=== PATIENT | female | born 1980 | race African-American/Black ===

== ENCOUNTER 2020-08-09 15:00 | Outpatient (RCR) | payer BC ==
[2020-07-21 16:27] VITALS: BP 123/82; PULSE 71; TEMP 98.2
[2020-07-28 15:08] VITALS: BP 120/55; PULSE 70; TEMP 98.2
[2020-08-04 16:36] VITALS: BP 140/72; PULSE 68; TEMP 98.7
[~2020-08-09] VITALS: Ht 149.9 cm; Wt 47.7 kg
[~2020-08-09 15:00] MED LIST: MIDOL CAPLET1 EACH PO; VOLTAREN 50MG T50 MG PO
[2020-08-09 15:30] VITALS: BP 114/76; PULSE 80; TEMP 98.9
== END 2020-08-09 16:04 | disposition home or self-care (01) ==
LOC: EUO
DX: E61.1 Iron deficiency (principal)
CPT/HCPCS: J1756

== ENCOUNTER → 2022-02-22 | Outpatient (CLI) | payer BC | LOC: MHCPAIN 13:36 | DX: M50.30 Other cervical disc degeneration, unspecified cervical region (principal); M54.16 Radiculopathy, lumbar region; M54.2 Cervicalgia; R51.9 Headache, unspecified; R20.0 Anesthesia of skin; G83.11 Monoplegia of lower limb affecting right dominant side; G83.21 Monoplegia of upper limb affecting right dominant side | CPT/HCPCS: G0463 ==

== ENCOUNTER → 2022-03-18 | Outpatient (CLI) | payer BC ==
[2022-03-18 09:10] LABS: C-REACTIVE PROTEIN 0.04 mg/dL (0.00-0.50)
== END ==
LOC: COL.LAB 07:59
PROVIDERS: Physical Medicine & Rehabilitation Sports Medicine
DX: M54.16 Radiculopathy, lumbar region (principal); M50.30 Other cervical disc degeneration, unspecified cervical region; R51.9 Headache, unspecified; G83.21 Monoplegia of upper limb affecting right dominant side; G83.11 Monoplegia of lower limb affecting right dominant side

== ENCOUNTER 2023-05-29 12:28 | Emergency (ER) | payer BC ==
[~2023-05-29] VITALS: Ht 149.9 cm; Wt 50.0 kg
[2023-05-29 12:32] VITALS: BP 139/80; TEMP 98.5
[2023-05-29] MEDS ORDERED: MEDROL 4MG DOSPA4 MG PO (13:12)
[2023-05-29] MEDS ORDERED: Promethazine 25 MG/ML 1 ML VIAL IM ONE (13:15)
[2023-05-29] MEDS ORDERED: HYDROmorphone 0.5 MG/0.5 ML SYRINGE IM ONE (13:15)
[2023-05-29 13:55] VITALS: PULSE 92
[2023-05-30] MEDS ORDERED: NORCO 325 MG-51 TAB PO (21:05)
[2023-05-30] MEDS ORDERED: ROBAXIN 50500 MG/TAB PO (21:06)
[2023-05-30] MEDS ORDERED: NEURONTIN300 MG/CAP PO (21:06)
[2023-05-30] MEDS ORDERED: CYMBALTA 60MG60 MG PO (21:07)
[2023-05-30] MEDS ORDERED: AMITRIPTYLINE H25 M1 (21:08)
== END 2023-05-29 13:55 | disposition home or self-care (01) ==
LOC: COL.ER 12:28
DX: M54.12 Radiculopathy, cervical region (principal)
CPT/HCPCS: J0780; J1170

== ENCOUNTER 2023-05-30 18:07 | Observation (INO) | payer BC ==
[~2023-05-30] VITALS: Ht 149.9 cm; Wt 54.0 kg
[~2023-05-30 18:07] MED LIST changes: +MEDROL 4MG DOSPA4 MG PO
[2023-05-30] MEDS ORDERED: NS 74 ML IV SCH (18:16)
[2023-05-30] MEDS ORDERED: Iohexol 300 - 100 ML VIAL IV ONE (18:16)
[2023-05-30 18:27] LABS: BASO % 0.5 % (0.0-2.0); EOS # 0.1 K/mm3 (0.0-0.7); EOS % 2.5 % (0.0-4.0); GRAN # 1.8 K/mm3 (1.4-6.5); HEMOGLOBIN 14.4 g/dl (12.5-16.0); LYMPH # 1.8 K/mm3 (1.2-3.4); LYMPH % 44.9 % (20.0-51.0); MEAN CELL VOLUME 90 fl (80.0-100.0); MEAN CORPUSCULAR HEMOGLOBIN 30 pg (27-31); MEAN CORPUSCULAR HGB CONC 34 g/dl (33.0-37.0); MEAN PLATELET VOLUME 10.1 fl (7.4-10.4); MONO # 0.3 K/mm3 (0.1-0.6); MONO % 7.9 % (1.7-9.3); PLATELET COUNT 287 K/mm3 (130-400); RED BLOOD COUNT 4.79 M/mm3 (4.10-5.30); REDCELL DISTRIBUTION WIDTH-CV 12.5 % (11.5-14.5)
[2023-05-30 18:49] LABS: ALANINE AMINOTRANSFERASE 23 U/L (0-55); ALBUMIN 4.5 gm/dL (3.5-5.0); ALKALINE PHOSPHATASE 46 U/L (40-150); ANION GAP 12 mmol/L (7-16); AST,SGOT 20 U/L (5-34); BILIRUBIN,TOTAL 0.6 mg/dL (0.2-1.2); BLOOD UREA NITROGEN 12 mg/dL (7-19); CARBON DIOXIDE 23 mmol/L (22-29); CHLORIDE 106 mmol/L (98-107); CREATININE, serum 0.81 mg/dL (0.57-1.11); GLUCOSE 127 mg/dL (70-99); POTASSIUM 3.8 mmol/L (3.5-4.5); SODIUM 141 mmol/L (136-145); TOTAL PROTEIN 8.1 gm/dL (6.2-8.1)
[2023-05-30 18:56] LABS: TROPONIN-I < 0.010 ng/mL (0.00-0.033)
[2023-05-30] MEDS ORDERED: diphenhydrAMINE 50 MG/ML 1 ML VIAL IV ONE (19:00)
[2023-05-30 19:21] LABS: COLLECTION METHOD CLEAN CATCH; URINE APPEARANCE Clear (CLEAR/HAZY); URINE BLOOD Negative (NEGATIVE); URINE COLOR Yellow (YELLOW); URINE GLUCOSE Negative (NEGATIVE); URINE KETONE Negative (NEGATIVE); URINE NITRATE Negative (NEGATIVE); URINE PROTEIN(semi-quant) Negative (NEGATIVE); URINE UROBILINOGEN 0.2 E.U/dL (0.2-1.0)
[2023-05-30 19:22] LABS: SQUAMOUS EPITHELIAL 0-2 /hpf (0-10); URINE RBC None Seen /hpf (0-2); URINE WBC None Seen /hpf (0-2)
[2023-05-30] MEDS ORDERED: NORCO 325 MG-51 TAB PO (21:05)
[2023-05-30] MEDS ORDERED: NEURONTIN300 MG/CAP PO (21:06)
[2023-05-30] MEDS ORDERED: ROBAXIN 50500 MG/TAB PO (21:06)
[2023-05-30] MEDS ORDERED: CYMBALTA 60MG60 MG PO (21:07)
[2023-05-30] MEDS ORDERED: AMITRIPTYLINE H25 M1 (21:08)
[2023-05-30] MEDS ORDERED: Gabapentin 300 MG CAP PO PRN (21:30)
[2023-05-30] MEDS ORDERED: Methocarbamol 500 MG TAB PO PRN (21:30)
[2023-05-30] MEDS ORDERED: Melatonin 3 MG TAB PO SCH (21:53)
[2023-05-30] MEDS ORDERED: Ondansetron 4 MG/2 ML VIAL IV PRN (22:00)
[2023-05-30] MEDS ORDERED: DULoxetine 60 MG CAP PO SCH (22:00)
[2023-05-30] MEDS ORDERED: Acetaminophen 325 MG TAB PO PRN (22:00)
[2023-05-30] MEDS ORDERED: NS 1,000 ML IV SCH (22:00)
[2023-05-30] MEDS ORDERED: Clopidogrel 75 MG TAB PO ONE (22:00)
[2023-05-30] MEDS ORDERED: hydrALAZINE 20 MG/ML 1 ML VIAL IV PRN (22:00)
[2023-05-30 22:04] VITALS: BP 134/87; PULSE 80; TEMP 98
[2023-05-30 22:05] VITALS: BP_SYST 134
[2023-05-30 23:44] VITALS: BP 124/70; PULSE 89; TEMP 98.4
[2023-05-31 00:10] VITALS: BP_SYST 124
[2023-05-31 02:57] VITALS: BP 116/77; PULSE 77; TEMP 98
[2023-05-31 04:10] VITALS: BP_SYST 116
[2023-05-31 06:10] LABS: BASO % 0.5 % (0.0-2.0); EOS # 0.1 K/mm3 (0.0-0.7); EOS % 3.3 % (0.0-4.0); GRAN # 1.8 K/mm3 (1.4-6.5); GRAN % 41.6 % (42.2-75.2); HEMATOCRIT 38.8 % (37.0-47.0); HEMOGLOBIN 12.9 g/dl (12.5-16.0); LYMPH % 46.2 % (20.0-51.0); MEAN CELL VOLUME 90 fl (80.0-100.0); MEAN CORPUSCULAR HEMOGLOBIN 30 pg (27-31); MEAN CORPUSCULAR HGB CONC 33 g/dl (33.0-37.0); MEAN PLATELET VOLUME 10.2 fl (7.4-10.4); MONO # 0.4 K/mm3 (0.1-0.6); MONO % 8.2 % (1.7-9.3); PLATELET COUNT 249 K/mm3 (130-400); RED BLOOD COUNT 4.32 M/mm3 (4.10-5.30); REDCELL DISTRIBUTION WIDTH-CV 12.5 % (11.5-14.5)
[2023-05-31 06:34] LABS: CALCIUM 8.9 mg/dL (8.4-10.2); CHOLESTEROL RISK RATIO 3.6; CREATININE, serum 0.76 mg/dL (0.57-1.11); POTASSIUM 4.2 mmol/L (3.5-4.5)
[2023-05-31 08:00] VITALS: BP 128/77; PULSE 89; TEMP 98.1
--- NOTE | 2023-05-31 08:00 | NUR ---
PATINET AWAKE AND ALERT, SITTING UP IN BED. PATIENTS AT BEDSIDE. VALL LIGHT WITHIN REACH.
[2023-05-31] MEDS ORDERED: Clopidogrel 75 MG TAB PO SCH (09:00)
[2023-05-31] MEDS ORDERED: PLAVIX 75MG TAB75 MG PO (11:29)
[2023-05-31] MEDS ORDERED: ASPIRIN 81M81 MG/TA2 PO (11:29)
--- NOTE | 2023-05-31 13:03 | NUR ---
BERNARDO AWAKE AND ALERT, SITTING UP IN BED. PATIENTS AT BEDSIDE. DISCHARGE INSTRUCTIONS AND EDUCATION GIVEN. PATIENT AWARE OF FOLLOW UP APTS, REFERALS AND IMAGING NEEDED. IV AND TELE REMOVED. PATIENT TAKEN VIA WHEELCHAIR TO ER ENTRANCE BY PCT WHERE SHE LEFT IN STABLE CONDITION.
== END 2023-05-31 13:04 | disposition home or self-care (01) ==
LOC: COL.ER 18:07 → MEDICAL 20:10
PROVIDERS: Emergency Medicine; Nurse Practitioner Family; ADMIT Internal Medicine
DX: M54.2 Cervicalgia (principal); R29.810 Facial weakness; R51.9 Headache, unspecified; E34.8 Other specified endocrine disorders; I77.3 Arterial fibromuscular dysplasia
CPT/HCPCS: G0378; J1200; J7030; Q9967

== ENCOUNTER → 2023-10-02 | Outpatient (CLI) | payer BC ==
[~2023-10-02] MED LIST changes: +AMITRIPTYLINE H25 M1; +ASPIRIN 81M81 MG/TA2 PO; +CYMBALTA 60MG60 MG PO; +NEURONTIN300 MG/CAP PO; +NORCO 325 MG-51 TAB PO; +PLAVIX 75MG TAB75 MG PO; +ROBAXIN 50500 MG/TAB PO
== END ==
LOC: MHCPAIN
DX: M51.16 Intervertebral disc disorders with radiculopathy, lumbar region (principal); M79.7 Fibromyalgia; M25.561 Pain in right knee; M25.562 Pain in left knee; Z98.1 Arthrodesis status
CPT/HCPCS: G0463

== ENCOUNTER 2024-02-05 09:00 | Outpatient (RCR) | payer BC | END 2024-02-09 | LOC: WSPT | DX: M54.2 Cervicalgia (principal); M54.50 Low back pain, unspecified ==

== ENCOUNTER → 2024-03-11 | Outpatient (RCR) | payer BC | LOC: WSPT → WSC 03-09 09:00 → WSPT 09:00 | DX: M54.2 Cervicalgia (principal); M54.50 Low back pain, unspecified ==

== ENCOUNTER → 2024-04-12 | Outpatient (CLI) | payer BC ==
[~2024-04-12] MED LIST changes: +Iohexol 300 - 10 ML VIAL ONE; +Lidocaine PF 2% (20 MG/ML) 2 ML VIAL ONE
== END ==
LOC: MHCPAIN 09:37
DX: M54.16 Radiculopathy, lumbar region (principal); M47.896 Other spondylosis, lumbar region
CPT/HCPCS: J1100; Q9967